=== PATIENT | female | born 1960 | race Caucasian/White ===

== ENCOUNTER 2017-07-23 11:12 | Emergency (ER) | payer BC ==
[2017-07-23 13:14] VITALS: BP 128/77
[2017-07-23] MEDS ORDERED: Tetan/Diph/Pertus SYR(Tdap)* 0.5 ML SYR(BOOSTRIX) use SYR IM ONE (13:40)
--- NOTE | 2017-07-23 13:51 | ED ---
Skin Complaint - HPI Summary HPI Summary: 56 yr old female with the complaint of puncture wound to the left foot. The patient states she had her shoes on and stepped on a sid old nail yesterday. She states her last tetanus shot was more than ten years ago. She wants a shot. She has been having cough and cold symptoms as well for over a week. The patient did not come here for the cold symptoms. - History of Current Complaint Chief Complaint: UCSkin Time Seen by Provider: 07/23/17 13:34 Stated Complaint: PUNCTURE WOUND,FLU LIKE SYMP Hx Last Menstrual Period: DECEMBER 2011 Pain Intensity: 0 - Allergy/Home Medications Allergies/Adverse Reactions: Allergies Allergy/AdvReac Type Severity Reaction Status Date / Time Lisinopril Allergy Severe FLUSHING, Verified 04/10/12 17:25 HEART RACING, HIVES Penicillins Allergy Intermediate FINGERS Verified 04/10/12 17:25 RED/ITCHY Amlodipine Allergy Swelling Verified 07/23/17 13:17 Codeine Allergy Hives Verified 04/14/13 09:09 Formaldehyde Allergy Hives Verified 04/14/13 09:09 Hydrochlorothiazide Allergy Hives Verified 04/14/13 09:09 Polyethylene Glycol Allergy Palpitation Verified 04/15/13 10:26 [From MiraLax] s Home Medications: Home Medications Pseudoephedrine-Ibuprofen [Advil Cold & Sinus] 1 cap PO PRN 07/23/17 [History] Spironolactone [Aldactone 25 MG-] 25 mg PO DAILY 07/23/17 [History Confirmed ] PMH/Surg Hx/FS Hx/Imm Hx Endocrine/Hematology History: Reports: Hx Diabetes Denies: Hx Sickle Cell Disease Cardiovascular History: Reports: Hx Hypertension Respiratory History: Reports: Hx Asthma History: Denies: Other Problems/Disorders Musculoskeletal History: Denies: Other Musculoskeletal History Sensory History: Reports: Hx Contacts or Glasses - GLASSES Denies: Hx Hearing Aid Opthamlomology History: Reports: Hx Contacts or Glasses - GLASSES Neurological History: Denies: Other Neuro Impairments/Disorders - Cancer History Hx Chemotherapy: No Hx Radiation Therapy: No - Surgical History Surgery Procedure, Year, and Place: BACK SURGERY, barriatric surgery Hx Anesthesia Reactions: No - Immunization History Immunizations Up to Date: No Infectious Disease History: No Infectious Disease History: Denies: Traveled Outside the [place] in Last 30 Days - Social History Alcohol Use: None Substance Use Type: Reports: None Smoking Status (MU): Never Smoked Tobacco Review of Systems Constitutional: Negative Positive: Other - puncture wound foot All Other Systems Reviewed And Are Negative: Yes Physical Exam Triage Information Reviewed: Yes Vital Signs On Initial Exam: Initial Vitals Temp Pulse Resp BP Pulse Ox 97.7 F 71 16 128/77 98 07/23/17 13:06 07/23/17 13:06 07/23/17 13:06 07/23/17 13:06 07/23/17 13:06 Vital Signs Reviewed: Yes Appearance: Positive: Well-Appearing, No Pain Distress Skin: Positive: Other - there is a puncture wound plantar surface in the 1st web space left foot. No FB palpated, and no cellulitis or swelling or redness. Eyes: Positive: EOMI Respiratory/Lung Sounds: Positive: Clear to Auscultation, Breath Sounds Present Cardiovascular: Positive: RRR. Negative: Murmur Abdomen Description: Positive: Nontender Musculoskeletal: Positive: Other - left foot without redness, swelling, tenderness. No bone deformity or tenderness. No FB palpated. Neurological: Positive: Sensory/Motor Intact, Alert, Oriented to Person Place, Time, CN Intact II-III Psychiatric: Positive: Normal - Kristian Coma Scale Best Eye Response: 4 - Spontaneous Best Motor Response: 6 - Obeys Commands Best Verbal Response: 5 - Oriented Coma Scale Total: 15 Diagnostics - Vital Signs Vital Signs Temp Pulse Resp BP Pulse Ox 07/23/17 13:06 97.7 F 71 16 128/77 98 - Laboratory Lab Statement: Any lab studies that have been ordered have been reviewed, and results considered in the medical decision making process. Course/Dx - Course Course Of Treatment: 56 yr old step on a nail. Tdap updated, and she has been put on cipro. DC home in good condition. FU with PMD. She was made aware that she could have FB from her shoe in her foot that could put her at risk for infection. She knows that if the foot should become red, swollen or painful that she should go to the ER. She is referred to the orthopedics surgeon for follow up. - Diagnoses Provider Diagnoses: Puncture wound of foot Discharge - Discharge Plan Condition: Good Disposition: HOME Prescriptions: Ciprofloxacin TAB* [Cipro 500 MG TAB*] 500 mg PO BID #10 tab Patient Education Materials: Puncture Wound (ED) Referrals: No Primary Care Phys,NOPCP [Primary Care Provider] - Yair Carrera MD [Medical Doctor] - Additional Instructions: be sure to go to the ER for any redness, foot swelling, fever or chills.
== END 2017-07-23 13:55 | disposition home or self-care (01) ==
LOC: UCCORT 11:12
DX: S91.332A Puncture wound without foreign body, left foot, initial encounter (principal); W45.0XXA Nail entering through skin, initial encounter; Y93.9 Activity, unspecified; Y92.9 Unspecified place or not applicable; Z23 Encounter for immunization; E11.9 Type 2 diabetes mellitus without complications; I10 Essential (primary) hypertension; J45.909 Unspecified asthma, uncomplicated; Z88.5 Allergy status to narcotic agent; Z88.0 Allergy status to penicillin; Z88.8 Allergy status to other drugs, medicaments and biological substances
CPT/HCPCS: 90471; 90715; 99212; G0463

== ENCOUNTER 2017-07-28 09:49 | Emergency (ER) | payer BC ==
[2017-07-28 11:40] VITALS: BP 124/72
--- NOTE | 2017-07-28 12:03 | UC ---
UC General HPI - HPI Summary HPI Summary: Patient complaining of body aches, chills sore throat, fever for the past few days. taking care of parents with pneumonia, she is SOB and feverish. - History of Current Complaint Chief Complaint: UCGeneralIllness Stated Complaint: COUGH, CHEST CONGESTION Time Seen by Provider: 07/28/17 11:54 Hx Obtained From: Patient Hx Last Menstrual Period: DECEMBER 2011 Onset/Duration: Sudden Onset, Lasting Days Timing: Constant Onset Severity: Moderate Current Severity: Moderate Pain Intensity: 5 Associated Signs & Symptoms: Positive: Cough, Fever, Headache, Vomiting - Allergy/Home Medications Allergies/Adverse Reactions: Allergies Allergy/AdvReac Type Severity Reaction Status Date / Time amlodipine Allergy Swelling Verified 07/28/17 11:37 codeine Allergy Hives Verified 07/28/17 11:37 formaldehyde Allergy Hives Verified 07/28/17 11:37 hydrochlorothiazide Allergy Hives Verified 07/28/17 11:37 lisinopril Allergy See Comment Verified 07/28/17 11:37 Penicillins Allergy See Comment Verified 07/28/17 11:37 polyethylene glycol 3350 Allergy Palpitation Verified 07/28/17 11:37 [From Miralax] s PMH/Surg Hx/FS Hx/Imm Hx Previously Healthy: Yes - Surgical History Surgical History: Yes Surgery Procedure, Year, and Place: BACK SURGERY, barriatric surgery - Family History Known Family History: Negative: Cardiac Disease, Hypertension - Social History Alcohol Use: None Substance Use Type: None Smoking Status (MU): Never Smoked Tobacco - Immunization History Most Recent Influenza Vaccination: YEARS Most Recent Tetanus Shot: unknown Most Recent Pneumonia Vaccination: NEVER Review of Systems Constitutional: Fever, Fatigue Skin: Negative Eyes: Negative ENT: Sore Throat Respiratory: Cough Cardiovascular: Negative Gastrointestinal: Negative Genitourinary: Negative Motor: Negative Neurovascular: Negative Musculoskeletal: Arthralgia, Myalgia Neurological: Headache Psychological: Negative Is Patient Immunocompromised?: No All Other Systems Reviewed And Are Negative: Yes Physical Exam Triage Information Reviewed: Yes Appearance: Well-Nourished, Ill-Appearing, Pain Distress Vital Signs: Initial Vital Signs Temp 100.4 F 07/28/17 11:35 Pulse 88 07/28/17 11:35 Resp 18 07/28/17 11:35 BP 124/72 07/28/17 11:35 Pulse Ox 97 07/28/17 11:35 Vital Signs Reviewed: Yes Eye Exam: Normal ENT: Positive: Pharyngeal erythema, Nasal congestion Dental Exam: Normal Neck exam: Normal Neck: Positive: Supple, Nontender, No Lymphadenopathy Respiratory: Positive: No respiratory distress - mild, Decreased breath sounds, Crackles, Wheezing, Inspiration Cardiovascular Exam: Normal Cardiovascular: Positive: RRR, No Murmur, Pulses Normal, Brisk Capillary Refill Abdominal Exam: Normal Abdomen Description: Positive: Nontender, No Organomegaly, Soft Bowel Sounds: Positive: Present Musculoskeletal Exam: Normal Neurological Exam: Normal Psychological Exam: Normal Skin Exam: Normal Course/Dx - Course Course Of Treatment: hx obtained, exam performed, meds reviewed flu is negative , chest xray reviewed, treated for bronchitis - Differential Dx - Multi-Symptom Provider Diagnoses: bronchitis. fever Discharge - Discharge Plan Condition: Stable Disposition: HOME Prescriptions: Albuterol 2.5MG/3ML (0.083%)* [Ventolin 2.5 MG/3 ML NEB.HELENA*] 2.5 mg INH Q4H #1 box DOXYcycline CAP(*) [DOXYcycline 100MG CAP(*)] 100 mg PO BID #14 cap predniSONE TAB* [Deltasone TAB*] 40 mg PO DAILY #14 tab Patient Education Materials: Acute Bronchitis (ED) Referrals: No Primary Care Phys,NOPCP [Primary Care Provider] - Additional Instructions: 1. take the medication as prescribed. 2. INcrease fluid intake and get plenty of rest. 3. FOllow up as needed.
[2017-07-28] MEDS ORDERED: Ibuprofen TAB* 600 MG PO ONE (12:10)
[2017-07-28] MEDS ORDERED: Albuterol/Ipratropium NEB.SOL* Albuterol 2.5 MG/Ipratropium 0.5 MG 3 ML INH ONE (12:17)
--- NOTE | 2017-07-28 12:43 | RAD ---
INDICATION: Cough and congestion COMPARISON: Chest x-ray dated April 09, 2013 TECHNIQUE: PA and lateral views of the chest were obtained. FINDINGS: The heart and mediastinum are normal in size and contour. The lungs are grossly clear. There is no evidence of large pleural effusion. There is mild peribronchial cuffing depicted best on the lateral view radiograph. Visualized bones are normal for the patient's age. There is no radiographic evidence of free air beneath the diaphragm IMPRESSION: MILD PERIBRONCHIAL CUFFING COULD BE SEEN IN THE SETTING OF BRONCHITIS OR OTHER INFLAMMATORY LUNG DISEASE.
== END 2017-07-28 13:13 | disposition home or self-care (01) ==
LOC: UCCORT 09:49
DX: J40 Bronchitis, not specified as acute or chronic (principal); R50.9 Fever, unspecified
CPT/HCPCS: 71046; 87502; 99212; A9270-GY; G0463